=== PATIENT | female | born 1960 | race African-American/Black ===

== ENCOUNTER 2018-08-23 19:06 | Emergency (ER) | payer MEDICARE, MEDICAID ==
[~2018-08-23] VITALS: Ht 154.9 cm; Wt 94.0 kg
[~2018-08-23 19:06] MED LIST: FLUT1DIS; LISI10TA5; MONT5TAB13
[2018-08-23 19:45] VITALS: BP 163/90
[2018-08-23] MEDS ORDERED: ACETAMINOPHEN 325MG TABLET PO ONE (22:15)
== END 2018-08-24 00:18 | disposition left against medical advice (07) ==
LOC: ER 19:06
DX: L97.919 Non-pressure chronic ulcer of unspecified part of right lower leg with unspecified severity (principal); R51 Headache; M25.511 Pain in right shoulder; M54.2 Cervicalgia; F32.9 Major depressive disorder, single episode, unspecified; E11.9 Type 2 diabetes mellitus without complications; M79.7 Fibromyalgia; Z98.890 Other specified postprocedural states; Z79.899 Other long term (current) drug therapy
CPT/HCPCS: 99281

== ENCOUNTER 2022-11-05 15:55 | Emergency (ER) | payer MEDICARE, MEDICAID ==
[~2022-11-05] VITALS: Ht 154.9 cm; Wt 88.9 kg
[~2022-11-05 15:55] MED LIST changes: +LISI10TA26; -LISI10TA5
[2022-11-05 16:19] VITALS: BP 162/85
[2022-11-05 16:53] LABS: EOSINOPHILS % 7.2 % (0.0-5.0); HEMATOCRIT. 39.6 % (36.0-48.0); HEMOGLOBIN. 13.4 g/dL (12.0-16.0); LYMPHOCYTES % 31.4 % (20.0-50.0); MEAN CORPUSCULAR HEMOGLOBIN 30.5 pg (28.0-32.0); MEAN CORPUSCULAR VOLUME 90.1 fL (81.0-99.0); MEAN PLATELET VOLUME 9.2 fl (7.4-10.4); MONOCYTES % 7.4 % (2.0-8.0); PLATELET 211 x1000/uL (130-400); RED BLOOD CELL COUNT 4.39 mill/uL (4.2-5.4)
[2022-11-05 17:02] LABS: CHLORIDE 114 mEq/L (98-107)
== END 2022-11-05 22:50 | disposition home or self-care (01) ==
LOC: ER 15:55
DX: M25.552 Pain in left hip (principal); R07.9 Chest pain, unspecified; F32.A Depression, unspecified; E11.9 Type 2 diabetes mellitus without complications; Z79.899 Other long term (current) drug therapy
CPT/HCPCS: 36415; 71045; 73502; 80053; 81025; 84484; 85025; 93005; 99285

== ENCOUNTER 2025-05-11 13:59 | Emergency (ER) | payer MEDICARE, MEDICAID ==
[~2025-05-11] VITALS: Ht 162.6 cm; Wt 110.0 kg
[~2025-05-11 13:59] MED LIST changes: -MONT5TAB13; +MONT5TAB79
[2025-05-11 14:02] VITALS: O2SAT 99
[2025-05-11] MEDS: SODIUM CHLORIDE 0.9% 1,000 ML IV ONE (14:35)
[2025-05-11 15:52] LABS: CREATININE 1.5 mg/dL (0.6-1.0); UREA NITROGEN BLOOD 28 mg/dL (9-23)
[2025-05-11 15:53] LABS: PROTEIN TOTAL 6.7 g/dL (6.0-8.3)
[2025-05-11 15:54] LABS: ASPARTATE AMINOTRANSFERASE 20 IU/L (<34); BILIRUBIN DIRECT < 0.1 mg/dL (<=3.0); BILIRUBIN TOTAL 0.3 mg/dL (0.1-1.0)
[2025-05-11 16:09] LABS: BASOPHILS % 0.8 % (0.0-2.0); EOSINOPHILS % 5.4 % (0.0-5.0); HEMATOCRIT. 39.2 % (36.0-48.0); HEMOGLOBIN. 12.5 g/dL (12.0-16.0); LYMPHOCYTES % 25.7 % (20.0-50.0); MEAN PLATELET VOLUME 9.8 fl (7.4-10.4); MONOCYTES % 7.0 % (2.0-8.0); NEUTROPHILS % 61.1 % (40.0-76.0); PLATELET 196 x1000/uL (130-400); RED BLOOD CELL COUNT 4.26 mill/uL (4.2-5.4); RED CELL DISTRIBUTION WIDTH 14.6 % (11.6-14.6)
[2025-05-11] MEDS: INSULIN LISPRO 100 UNITS/ML SUBCUT STA (17:04)
[2025-05-11] MEDS ORDERED: AMOX1TAB16 MT (17:14)
[2025-05-11] MEDS ORDERED: AZIT250T12 PO (17:14)
[2025-05-11 17:24] LABS: CLARITY URINE CLEAR (CLEAR); GLUCOSE URINE 3+ (NEGATIVE); KETONES URINE NEGATIVE (NEGATIVE); LEUKOCYTE ESTERASE URINE NEGATIVE (NEGATIVE); NITRITE URINE NEGATIVE (NEGATIVE); OCCULT BLOOD URINE NEGATIVE (NEGATIVE); PH URINE 5.5 (4.5-8.0); PROTEIN URINE TRACE (NEGATIVE); SPECIFIC GRAVITY URINE 1.026 (1.005-1.030); UROBILINOGEN URINE 0.2 E.U./dL (0.2-1.0)
[2025-05-11] MEDS: CEFTRIAXONE 2GM/50ML 50 ML IV ONE (17:31)
[2025-05-11] MEDS: AZITHROMYCIN 500MG/250ML 250 ML IV SCH (18:00)
[2025-05-11 18:46] LABS: COLOR URINE STRAW (YELLOW)
[2025-05-11 18:49] LABS: BACTERIA URINE NONE SEEN; RBC URINE NONE SEEN /hpf (0-2); SQUAMOUS EPITHELIAL CELL URINE 1+ /lpf (RARE/1+); WBC URINE 0-2 /hpf (0-2); YEAST URINE 1+
[2025-05-11 19:34] VITALS: BP 117/75; PULSE 80; RESP 20; TEMP 37.2; O2SAT 100
== END 2025-05-11 19:36 | disposition home or self-care (01) ==
LOC: ER 13:59
DX: E11.65 Type 2 diabetes mellitus with hyperglycemia (principal); N17.9 Acute kidney failure, unspecified; J18.9 Pneumonia, unspecified organism; R06.02 Shortness of breath; Z55.6 Problems related to health literacy; Z79.51 Long term (current) use of inhaled steroids; Z85.118 Personal history of other malignant neoplasm of bronchus and lung
CPT/HCPCS: 99285; 96365; 71045; 96361; 80076; 80048; 81003; 82010; 82962; 83880; 83690; 85025; 36415; 93005; 96368; J0456; J0696; J1815; J7030

== ENCOUNTER 2025-05-14 16:44 | Emergency (ER) | payer MEDICARE, MEDICAID ==
[~2025-05-14] VITALS: Ht 167.6 cm; Wt 82.0 kg
[~2025-05-14 16:44] MED LIST changes: +AMOX1TAB16 MT; +AZIT250T12 PO
[2025-05-14 16:56] VITALS: O2SAT 98
[2025-05-14 18:27] LABS: BASOPHILS % 1.1 % (0.0-2.0); EOSINOPHILS % 6.7 % (0.0-5.0); HEMATOCRIT. 39.1 % (36.0-48.0); HEMOGLOBIN. 12.6 g/dL (12.0-16.0); LYMPHOCYTES % 22.7 % (20.0-50.0); MEAN PLATELET VOLUME 9.7 fl (7.4-10.4); MONOCYTES % 9.5 % (2.0-8.0); NEUTROPHILS % 60.0 % (40.0-76.0); PLATELET 173 x1000/uL (130-400); RED BLOOD CELL COUNT 4.28 mill/uL (4.2-5.4); RED CELL DISTRIBUTION WIDTH 14.7 % (11.6-14.6)
[2025-05-14 18:42] LABS: CREATININE 1.2 mg/dL (0.6-1.0)
[2025-05-14 18:43] LABS: UREA NITROGEN BLOOD 15.0 mg/dL (9-23)
[2025-05-14] MEDS: INSULIN REGULAR (HUMULIN R) 1000UNITS/10ML VIAL SUBCUT ONE (19:29)
[2025-05-14 19:52] VITALS: BP 94/49; PULSE 73; RESP 14; TEMP 36.8; O2SAT 98
== END 2025-05-14 20:06 | disposition home or self-care (01) ==
LOC: ER 16:44
DX: E11.65 Type 2 diabetes mellitus with hyperglycemia (principal); I10 Essential (primary) hypertension; Z79.84 Long term (current) use of oral hypoglycemic drugs; Z79.51 Long term (current) use of inhaled steroids; Z79.899 Other long term (current) drug therapy; Z98.890 Other specified postprocedural states
CPT/HCPCS: 99283; 80048; 82962; 85025; 36415; J1815